=== PATIENT | male | born 1970 | race Hispanic/Latino ===

== ENCOUNTER → 2017-03-05 | Day surgery (SDC) | payer OTHER ==
[~2017-03-05] MED LIST: FENTANYL CITRATE/PF 100MCG/2 ML INJ ONE; HYOSCYAMINE SULFATE 0.5 MG/ML AMP ONE; KETAMINE HCL INJ 50 MG/ML 10 ML VIAL ONE; LABETALOL HCL IV 5 MG/ML 20ML MDV ONE; LIDOCAINE HCL 2% LOCAL INJ 5 ML SDV VIAL INJ ONE; MIDAZOLAM HCL 2 MG/2 ML VIAL ONE; PROPOFOL IV EMULSION 10 MG/ML 50 ML VIAL ONE
--- NOTE | 2017-03-05 09:17 | Operative Report ---
DATE OF PROCEDURE: March 05, 2017 REFERRING PHYSICIAN: Dr. Felton Carbajal. PROCEDURE PERFORMED: Colonoscopy and polypectomy. INDICATIONS FOR COLONOSCOPY: History of diverticulitis. MEDICATION: Patient was done under MAC. Please see anesthesiologist's note. PROCEDURE: With patient in the left lateral decubitus position, flexible fiberoptic Olympus colonoscope was inserted into the rectum with ease and advanced all the way to the cecum. Mucosa overlying the cecum appeared to be within normal limits. Diverticular disease was noted pretty much throughout. One polyp was hot biopsied from the ascending colon. One polyp was hot biopsied from the transverse colon. One polyp was snared and one polyp was hot biopsied from the splenic flexure. Other than for diverticular disease, the descending colon appeared to be within normal limits. There was a focal friability (?) focal diverticulitis of the sigmoid colon. The site was biopsied. Two minute polyps were hot biopsied from the rectum. The scope was then retroflexed into the distal rectum and small internal hemorrhoids were noted, none of which was actively bleeding. The scope was then straightened out. The rectosigmoid area as well as the distal rectal area were decompressed. Scope was subsequently withdrawn. There were some (?) fistulous opening in the perianal area. Patient tolerated the procedure well. IMPRESSION: 1. Pandiverticulosis. 2. Ascending colon polyp hot biopsied. 3. Transverse colon polyp hot biopsied. 4. Splenic flexure polyps times 2. One snared and one hot biopsied. 5. Focal friability (?) focal diverticulitis, sigmoid colon. 6. Rectal polyps x2 hot biopsied. 7. Small internal hemorrhoids, none actively bleeding. 8. (?) perianal fistulous openings. PLAN: Follow up histology. Check CBC, sed rate and CRP. The patient will need a followup colonoscopy in 3 years. Job#: [id number] GH cc:FELTON CARBAJAL, DO
[2017-03-05 09:35] LABS: BASOPHILS % 0.4 % (0.0-1.0); EOSINOPHILS # (AUTO) 0.1 (0.0-0.4); EOSINOPHILS % 1.3 % (0.0-6.0); HEMATOCRIT 45.5 % (38.2-49.6); HEMOGLOBIN 15.4 g/dL (14.0-18.0); LYMPHOCYTES # (AUTO) 3.5 (1.0-3.2); LYMPHOCYTES % 33.9 % (18.0-39.1); MEAN CORPUSCULAR HEMOGLOBIN 29.3 pg (28-32); MEAN CORPUSCULAR HGB CONC 33.8 g/dL (31-35); MEAN CORPUSCULAR VOLUME 86.5 fL (81-99); MONOCYTES # (AUTO) 0.7 (0.2-0.8); MONOCYTES % 6.9 % (4.4-11.3); NEUTROPHILS # (AUTO) 5.8 (2.1-6.9); NEUTROPHILS % 56.9 % (38.7-80.0); PLATELET COUNT 256 x10e3/uL (140-360); RED BLOOD COUNT 5.26 x10e6/uL (4.3-5.7); RED CELL DISTRIBUTION WIDTH 13.2 % (11.7-14.4)
[2017-03-05 10:57] LABS: ERYTHROCYTE SEDIMENTATION RATE 13 mm/hr (0-13)
== END | disposition home or self-care (01) ==
LOC: ENDO 06:08
PROVIDERS: ATTEND Internal Medicine Gastroenterology
DX: Z09 Encounter for follow-up examination after completed treatment for conditions other than malignant neoplasm (principal); D12.3 Benign neoplasm of transverse colon; K62.1 Rectal polyp; L98.0 Pyogenic granuloma; K57.30 Diverticulosis of large intestine without perforation or abscess without bleeding; K64.8 Other hemorrhoids; Z72.0 Tobacco use; Z01.810 Encounter for preprocedural cardiovascular examination
CPT/HCPCS: 36415; 45384; 45385; 85025; 85651; 86140; 93005; J1980; J2001; J2250; J3490

== ENCOUNTER → 2019-04-13 | Day surgery (SDC) | payer BC ==
[~2019-04-13] MED LIST changes: +BUPIVACAINE 0.5%/EPI 30 ML SDV INJ ONE; +CEFOXITIN SOD 1 GM VIAL ONE; +DEXAMETHASONE SOD PHOS 10 MG/1 ML VIAL ONE; +EPHEDRINE SULFATE INJ 50 MG/ML VIAL ONE; +ESMOLOL HCL 100MG/10ML 10 MG/ML VIAL ONE; -HYOSCYAMINE SULFATE 0.5 MG/ML AMP ONE; -KETAMINE HCL INJ 50 MG/ML 10 ML VIAL ONE; +KETOROLAC TROMETHAMINE 30 MG/ML VIAL ONE; -LABETALOL HCL IV 5 MG/ML 20ML MDV ONE; +LEVAQUIN500 MG PO; +LIDOCAINE HCL 1% LOCAL INJ 20 ML VIAL ONE; +LIDOCAINE HCL 2% 30 ML TUBE ONE; +METFORMIN HCL500 MG PO; +MORPHINE SULFATE INJ 10 MG/ML ONE; +NORCO 7.5-3251 EACH PO; +ONDANSETRON HCL INJ 2MG/ML 2ML 2 MG/ML VIAL ONE; +PROPOFOL IV EMULSION 10 MG/ML 20 ML VIAL ONE; -PROPOFOL IV EMULSION 10 MG/ML 50 ML VIAL ONE; +SEVOFLURANE INHAL SOLN 250 ML PEN BTL ONE
[2019-04-13 12:25] VITALS: BP 121/89
--- NOTE | 2019-04-13 17:54 | Operative Report ---
DATE OF PROCEDURE: 04/13/2019 SURGEON: Ash Horn MD PREOPERATIVE DIAGNOSIS: Complex anorectal fistula x2. POSTOPERATIVE DIAGNOSIS: Complex anorectal fistula x2. OPERATION PERFORMED: Complex anorectal fistulectomy x2. ANESTHESIA: General. COMPLICATIONS: None. ESTIMATED BLOOD LOSS: Minimal. DESCRIPTION OF PROCEDURE: With the patient lying in bed in the supine position. The patient was then placed in lithotomy and the perineum was prepped with Betadine solution and draped in the usual manner. Rectal exam under anesthesia at this point revealed that the external aspect of the old fistula had closed nicely. This was a very long fistula both of them extending for at least 10 cm and all the external part was nicely closed. However, the component having to do with the internal opening and the anorectal verge was still infected with a lot of necrotic and granulating tissue on both fistulas. The one at 12 o'clock and the one at the 6 o'clock position. Both fistula tracts were then probed and the internal opening was identified without any difficulty and the fistula tracts were then reopened and all the granulation tissue was then debrided and all the necrotic tissue was removed in both fistulas. Hemostasis was then ascertained and both areas were then infiltrated with 0.25% Marcaine and 1% lidocaine with epinephrine. Hemostasis was ascertained. A Gelfoam pack was then placed. A dressing was applied. The sponge, lap, and needle count was correct. The patient tolerated the procedure well and returned to the recovery room in stable condition. MD RADHA Martinez/MODL /[id number]
== END | disposition home or self-care (01) ==
LOC: OR 06:59
PROVIDERS: ATTEND Surgery
DX: K60.5 Anorectal fistula (principal); I10 Essential (primary) hypertension; E11.9 Type 2 diabetes mellitus without complications; Z79.84 Long term (current) use of oral hypoglycemic drugs; Z87.891 Personal history of nicotine dependence
CPT/HCPCS: 36415; 46270; 82948; J0694; J1100; J1885; J2001 ×2; J2250; J2270; J2405; J2704; J3010

== ENCOUNTER 2022-06-30 19:04 | Emergency (ER) | payer BC ==
[~2022-06-30] VITALS: Ht 182.9 cm; Wt 104.8 kg
[~2022-06-30 19:04] MED LIST changes: -BUPIVACAINE 0.5%/EPI 30 ML SDV INJ ONE; -CEFOXITIN SOD 1 GM VIAL ONE; -DEXAMETHASONE SOD PHOS 10 MG/1 ML VIAL ONE; -EPHEDRINE SULFATE INJ 50 MG/ML VIAL ONE; -ESMOLOL HCL 100MG/10ML 10 MG/ML VIAL ONE; -FENTANYL CITRATE/PF 100MCG/2 ML INJ ONE; -KETOROLAC TROMETHAMINE 30 MG/ML VIAL ONE; -LIDOCAINE HCL 1% LOCAL INJ 20 ML VIAL ONE; -LIDOCAINE HCL 2% 30 ML TUBE ONE; -LIDOCAINE HCL 2% LOCAL INJ 5 ML SDV VIAL INJ ONE; -MIDAZOLAM HCL 2 MG/2 ML VIAL ONE; -MORPHINE SULFATE INJ 10 MG/ML ONE; -ONDANSETRON HCL INJ 2MG/ML 2ML 2 MG/ML VIAL ONE; -PROPOFOL IV EMULSION 10 MG/ML 20 ML VIAL ONE; -SEVOFLURANE INHAL SOLN 250 ML PEN BTL ONE
[2022-06-30] MEDS ORDERED: KETOROLAC TROMETHAMINE 60 MG/2 ML VIAL IM ONE (20:00)
[2022-06-30] MEDS ORDERED: KETOROLAC TROMETHAMINE 60 MG/2 ML VIAL ONE (20:02)
[2022-06-30] MEDS ORDERED: NAPROSYN500 MG PO (21:57)
== END 2022-06-30 22:09 | disposition home or self-care (01) ==
LOC: ER 19:18
DX: R07.89 Other chest pain (principal); S20.212A Contusion of left front wall of thorax, initial encounter; W01.0XXA Fall on same level from slipping, tripping and stumbling without subsequent striking against object, initial encounter; Y93.01 Activity, walking, marching and hiking; Y92.89 Other specified places as the place of occurrence of the external cause; E11.9 Type 2 diabetes mellitus without complications; Z87.19 Personal history of other diseases of the digestive system
CPT/HCPCS: 71101; 99283; J1885

== ENCOUNTER → 2024-07-06 | Outpatient (REF) | payer BC, OTHER ==
[~2024-07-06] MED LIST changes: +LOSARTAN POTASS25 MG PO; +MULTI-VITAMIN1 EACH PO; +NAPROSYN500 MG PO; +OZEMPIC0.25 MG/02
== END | disposition home or self-care (01) ==
LOC: RAD 08:00 → EDSTATUS 07-14 08:30
PROVIDERS: ATTEND Internal Medicine Gastroenterology
DX: Z09 Encounter for follow-up examination after completed treatment for conditions other than malignant neoplasm (principal); Z86.0100 Personal history of colon polyps, unspecified; Z53.9 Procedure and treatment not carried out, unspecified reason
CPT/HCPCS: 93005